=== PATIENT | male | born 1960 | race African-American/Black ===

== ENCOUNTER → 2020-10-09 14:47 | Outpatient (CLI) | payer OTHER | END | disposition home or self-care (01) | LOC: D.MRI 14:47 | DX: M25.571 Pain in right ankle and joints of right foot (principal) ==

== ENCOUNTER 2020-11-27 10:31 | Emergency (ER) | payer OTHER ==
[~2020-11-27] VITALS: Ht 177.8 cm; Wt 81.8 kg
[2020-11-27 10:40] VITALS: BP 155/106; Ht 177.8 cm; Wt 81.8 kg
[2020-11-27] MEDS ORDERED: METHOCARBAMOL750 MG (10:41)
[2020-11-27] MEDS ORDERED: MEDROL DOSE PACK4 MG PO (10:42)
[2020-11-27] MEDS ORDERED: XANAX1 MG PO (10:42)
[2020-11-27] MEDS ORDERED: NORVASC10 MG PO (10:43)
[2020-11-27] MEDS ORDERED: MOBIC7.5 MG PO (11:30)
[2020-11-27] MEDS ORDERED: CYCLOBENZAPRINE10 MG PO (11:30)
== END 2020-11-27 12:18 | disposition home or self-care (01) ==
LOC: D.ER 10:31
DX: M54.5 Low back pain (principal); I10 Essential (primary) hypertension